=== PATIENT | male | born 1975 | race African-American/Black ===

== ENCOUNTER 2017-03-16 13:20 | Emergency (ER) | payer BC ==
[2017-03-16 14:06] LABS: BASOPHILS # (AUTO) 0.1 10^3/uL (0.0-0.1); BASOPHILS % (AUTO) 1.2 %; HCT - HEMATOCRIT 46.6 % (42.0-52.0); HGB - HEMOGLOBIN 15.7 g/dL (14.0-18.0); LYMPHOCYTES # (AUTO) 0.8 10^3/uL (1.5-3.5); LYMPHOCYTES % (AUTO) 13.8 %; MEAN CORPUSCULAR HEMOGLOBIN 29.1 pg (27.0-31.0); MEAN CORPUSCULAR HGB CONC 33.6 g/dL (32.0-36.0); MEAN CORPUSCULAR VOLUME 86.7 fL (80.0-94.0); MEAN PLATELET VOLUME 7.2 fL (7.4-11.4); MONOCYTES # (AUTO) 0.1 10^3/uL (0.0-1.0); MONOCYTES % (AUTO) 2.5 %; NEUTROPHILS # (AUTO) 4.7 10^3/uL (1.5-6.6); NEUTROPHILS % (AUTO) 82.5 %; NUCLEATED RED BLOOD CELLS AUTO 0.1 /100WBC; RED BLOOD COUNT 5.38 10^6/uL (4.70-6.10); RED CELL DISTRIBUTION WIDTH 13.9 % (12.0-15.0); UNCORRECTED WHITE BLOOD COUNT 5.7 x10^3/uL; WHITE BLOOD COUNT 5.7 x10^3/uL (4.8-10.8)
--- NOTE | 2017-03-16 14:15 | XRAY Preliminary Report ---
Exam: XR CHEST 1 VIEW IMPRESSION: No acute disease. [facility] SITE ID: [id number]
--- NOTE | 2017-03-16 14:17 | XRAY Report ---
EXAM: CHEST RADIOGRAPHY EXAM DATE: 03/16/2017 02:00 PM. CLINICAL HISTORY: Chest pain. COMPARISON: None. TECHNIQUE: 1 view. FINDINGS: Lungs/Pleura: Clear. No effusion or pneumothorax. Mediastinum: Within exam limitations, the cardiomediastinal contour is normal. Upper lobe vessels not distended. Other: None. IMPRESSION: No acute disease. [facility] Referring Provider Line: [phone] SITE ID: [id number]
[2017-03-16 14:20] LABS: ALBUMIN/GLOBULIN RATIO 0.9 (1.0-2.2); BILIRUBIN,TOTAL 0.4 mg/dL (0.2-1.0); CALCIUM 9.7 mg/dL (8.5-10.3); CREATININE 0.8 mg/dL (0.6-1.2); POTASSIUM 4.2 mmol/L (3.5-5.0); TOTAL PROTEIN 9.3 g/dL (6.7-8.2)
[2017-03-16] MEDS ORDERED: DEXAMETHASONE 10 MG/ML VIAL IVP STA (14:58)
[2017-03-16] MEDS ORDERED: cefTRIAXone 1 GM in SODIUM CHLORIDE 0.9% MINIBAG 100 ML IV STA (14:58)
[2017-03-16] MEDS ORDERED: IPRATROPIUM/ALBUTEROL 3 ML NEB INH STA (14:59)
[2017-03-16] MEDS ORDERED: cefTRIAXone 1 GM VIAL ONE (15:15)
[2017-03-16] MEDS ORDERED: DEXAMETHASONE 10 MG/ML VIAL ONE (15:15)
[2017-03-16] MEDS ORDERED: IPRATROPIUM/ALBUTEROL 3 ML NEB INH ONE (15:22)
[2017-03-16] MEDS ORDERED: ACETAMINOPHEN 325 MG TABLET PO STA (15:50)
[2017-03-16] MEDS ORDERED: ACETAMINOPHEN 325 MG TABLET PO ONE (15:51)
--- NOTE | 2017-03-16 16:05 | ED Physician Documentation ---
PD HPI DYSPNEA - Stated complaint Stated Complaint: CONGESTION/SOA - Chief complaint Chief Complaint: Resp - History obtained from History obtained from: Patient - History of Present Illness Timing - onset: How many days ago (3) Timing - onset during: Light activity Timing - duration: Days Timing - details: Gradual onset, Still present, Waxing and waning Inciting event(s): URI Improved by: Inhaler/neb Worsened by: Exertion, Coughing Associated symptoms: Fever, Cough, Wheezing Similar symptoms before: Diagnosis (pneumonia) Recently seen: Not recently seen - Additional information Additional information: 41-year-old male with a history of HIV and asthma has developed cough congestion and shortness of breath. He last had be on a course of prednisone earlier this year. He does not have AIDS. He is on medication for his HIV and has undetectable levels. He has never had an opportunistic infection. He is traveling here from [place] to work and today he had to call off work because of this shortness of breath. He feels better on arrival to the emergency department by ambulance. Review of Systems Constitutional: reports: Fever, Chills Eyes: denies: Decreased vision Ears: reports: Tinnitus/ringing. denies: Ear pain Nose: reports: Rhinorrhea / runny nose, Congestion Throat: denies: Sore throat Cardiac: denies: Chest pain / pressure Respiratory: reports: Dyspnea, Cough, Wheezing GI: denies: Nausea, Vomiting Skin: denies: Rash Musculoskeletal: denies: Neck pain, Back pain PD PAST MEDICAL HISTORY - Past Surgical History Past Surgical History: No - Present Medications Home Medications: Ambulatory Orders Medication Instructions Recorded Confirmed Azithromycin [Zithromax] 250 mg PO DAILY #6 tablet 03/16/17 predniSONE [Deltasone] 10 mg PO DAILY #26 tablet 03/16/17 - Allergies Allergies/Adverse Reactions: Allergies Allergy/AdvReac Type Severity Reaction Status Date / Time sulfamethoxazole Allergy Unknown Verified 03/16/17 13:26 [From Bactrim] trimethoprim [From Bactrim] Allergy Unknown Verified 03/16/17 13:26 - Social History Does the pt smoke?: Yes Smoking Status: Current some day smoker Does the pt drink ETOH?: Yes ETOH Use: Beer Substance Use and Type: Marijuana PD ED PE NORMAL - Vitals Vital signs reviewed: Yes (Tachycardic and hypertensive) - General General: Well developed/nourished, Other (The patient is dyspneic at rest and is using pursed lipped breathing.) - HEENT HEENT: Atraumatic, PERRL, EOMI, Other (Both TMs are erythematous with flattening and rounding of the umbo. Mucous membranes are dry.) - Neck Neck: Supple, no meningeal sign, No bony TTP - Cardiac Cardiac: RRR, No murmur - Respiratory Respiratory: Other (Tachypnea at rest with scattered wheezes and diminished breath sounds throughout.) - Abdomen Abdomen: Soft, Non tender - Back Back: No CVA TTP, No spinal TTP - Derm Derm: Normal color, Warm and dry, No rash - Extremities Extremities: No deformity, No edema - Neuro Neuro: No motor deficit, No sensory deficit Eye Opening: Spontaneous Motor: Obeys Commands Verbal: Oriented GCS Score: 15 - Psych Psych: Normal mood, Normal affect Results - Vitals Vitals: Vital Signs - 24 hr 03/16/17 03/16/17 03/16/17 13:22 14:28 16:28 Temperature 36.8 C 99.8 C H Heart Rate 102 H 90 89 Respiratory 24 18 20 Rate Blood Pressure 141/88 H 136/83 H 161/101 H O2 Saturation 96 93 93 Oxygen O2 Source Room air Oxygen Flow Rate 2 - EKG (time done) 1338 Rate: Rate (enter#) (90) Rhythm: NSR, LAE Compare to prior EKG: Old EKG unavailable Computer interpretation: Agree with computer - Labs Labs: Laboratory Tests 03/16/17 03/16/17 03/16/17 13:41 13:41 13:41 WBC 5.7 RBC 5.38 Hgb 15.7 Hct 46.6 MCV 86.7 MCH 29.1 MCHC 33.6 RDW 13.9 Plt Count 318 MPV 7.2 L Neut # 4.7 Lymph # 0.8 L [place] # 0.1 Eos # 0.0 Baso # 0.1 Absolute Nucleated RBC 0.01 Nucleated RBC % 0.1 Sodium 132 L Potassium 4.2 Chloride 100 L Carbon Dioxide 21 Anion Gap 11.0 BUN 10 Creatinine 0.8 Estimated GFR (MDRD) 128 Glucose 128 H Calcium 9.7 Total Bilirubin 0.4 AST 29 ALT 22 Alkaline Phosphatase 51 Troponin I < 0.04 Total Protein 9.3 H Albumin 4.4 Globulin 4.9 H Albumin/Globulin Ratio 0.9 L Lipase 21 L - Rads (name of study) 2 view chest Radiology: Prelim report reviewed (Impression: No acute disease.), EMP read indepedently, See rad report PD MEDICAL DECISION MAKING - ED course Complexity details: reviewed results, re-evaluated patient, considered differential, d/w patient ED course: 41-year-old male with a history of asthma has acute exacerbation with bilateral otitis media on examination. He is quite short of breath and has marked improvement with use of a DuoNeb treatment here in the emergency department he is administered dexamethasone 10 mg intravenously as well as a gram of Rocephin intravenously. We will put him on some azithromycin given him a course of prednisone and he does have 2 inhalers at home. I will excuse him from work for 2 days. Departure - Departure Disposition: , Self Care Clinical Impression: Asthma exacerbation Qualifiers: Asthma severity: moderate Asthma persistence: persistent Qualified Code(s): J45.41 - Moderate persistent asthma with (acute) exacerbation Otitis media Qualifiers: Otitis media type: suppurative Chronicity: acute Laterality: bilateral Recurrence: not specified as recurrent Spontaneous tympanic membrane rupture: without spontaneous rupture Qualified Code(s): H66.003 - Acute suppurative otitis media without spontaneous rupture of ear drum, bilateral Condition: Stable Instructions: ED Reactive Airway Disease, ED Otitis Media Acute Adult Follow-Up: [facility] [Provider Group] Prescriptions: Azithromycin [Zithromax] 250 mg PO DAILY #6 tablet predniSONE [Deltasone] 10 mg PO DAILY #26 tablet Forms: Activity restrictions Discharge Date/Time: 03/16/17 16:28
[2017-03-16 16:29] VITALS: BP 161/101
== END 2017-03-16 16:28 | disposition home or self-care (01) ==
LOC: ED 13:20
DX: J45.41 Moderate persistent asthma with (acute) exacerbation (principal); H66.003 Acute suppurative otitis media without spontaneous rupture of ear drum, bilateral; Z21 Asymptomatic human immunodeficiency virus [HIV] infection status; F17.200 Nicotine dependence, unspecified, uncomplicated
CPT/HCPCS: 36415; 71010; 80053; 83690; 84484; 85025; 93005; 94640; 96365; 96375; 99284; A9270; J7620